=== PATIENT | male | born 1985 | race Caucasian/White ===

== ENCOUNTER 2020-04-03 22:20 | Emergency (ER) | payer OTHER, SELFPAY ==
[2020-04-03 23:12] VITALS: BP 129/94; PULSE 68; RESP 16; TEMP 36.8; O2SAT 98; BMI 32.5
[2020-04-03 23:25] LABS: Glucose, Whole Blood 304 mg/dL (60-115)
--- NOTE | 2020-04-03 23:30 | PC.NURSE ---
pt admits to using cocaine today.
[2020-04-03 23:47] LABS: Appearance Urine CLEAR; Color Urine STRAW; Glucose Urine UA >=1000 MG/DL (NEG); Leukocyte Esterase Urine NEG (NEG); Nitrite Urine NEG (NEG); Urine Blood NEG (NEG); Urine Ketones NEG (NEG); Urine Protein TRACE MG/DL (NEG-TRACE)
[2020-04-03 23:54] VITALS: BP 120/83; PULSE 67; RESP 18; TEMP 36.7; O2SAT 98
[2020-04-03 23:54] LABS: RBC Urine 0 /HPF (0); Squamous Epithelial Cell Urine 1+ /LPF; WBC Urine 0-2 /HPF (0-4)
--- NOTE | 2020-04-04 00:01 | ED.GENADULT ---
HPI - General Adult General Chief complaint: General Medical Stated complaint: headache, hi bs Time Seen by Provider: 04/04/20 00:01 Source: patient Mode of arrival: ambulatory Limitations: no limitations History of Present Illness HPI narrative: rectal pain for weeks and headache, patient has not seen his doctor. patient is not taking his diabetic medication Location: head Related Data Previous Rx's Medication Instructions Recorded metformin 1,000 mg PO DAILY #30 tab 04/04/20 Allergies Allergy/AdvReac Type Severity Reaction Status Date / Time bee pollen [BEE STINGS] Allergy Severe SWELLING Verified 04/03/20 23:11 Review of Systems Constitutional: Constitutional: Reports no additional constitutional complaints Eyes: Eyes: Reports no additional eye complaints ENT: Denies dizziness Cardiovascular: Cardiovascular: Reports no additional cardiovascular complaints Respiratory: Respiratory: Reports as per HPI Gastrointestinal: Gastrointestinal: Reports no additional gastrointestinal complaints Musculoskeletal: Musculoskeletal: Reports no additional musculoskeletal complaints Integumentary/Breasts: Skin/Breast: Denies rash Neurologic: Reports system reviewed and no additional complaints, except as documented, Denies dizziness and Denies Sensory deficit (Neuro) Psychiatric: Psychiatric: Denies anxiety [facility] Past Medical History Medical History Anal fissure Diabetes Social History Social History Advance Directives: No Advance Directives Information Provided: Yes Physical Exam Vital Signs: Vital Signs: Last Vital Signs Temp 98.0 F 04/03/20 23:54 Pulse 67 04/03/20 23:54 Resp 18 04/03/20 23:54 BP 120/83 04/03/20 23:54 Pulse Ox 98 04/03/20 23:54 Body Mass Index 32.5 Const: Other: male unkept in no acute distresss General: poor hygiene Nutritional Appearance: overweight Orientation/consciousness: oriented to person and patient oriented x3 Limitations: no limitations HENMT: Head: Yes normal to inspection Ears: external ears normal General nose exam: Normal external nose present Mouth: Normal oral and palatal mucosa present and oropharynx normal Throat: Yes posterior oropharynx normal Eyes: General: appearance normal, both eyes and all related structures Neck: Other: supple Neck: Yes normal visual inspection Chest: Chest palpation & inspection: normal inspection of the chest Resp: Auscultation: clear to auscultation bilaterally Cardio: Jugular venous distension: no JVD Rate: regular rate Rhythm: regular rhythm Heart sounds: S1 normal heart sound present and S2 normal heart sound present GI: Inspection: Yes normal to inspection Palpation (GI): Soft to palpation, nontender and No hepatosplenomegaly present Auscultation: normal bowel sounds : Other: rectal with 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, no pus, no erythema General: Yes no CVA tenderness Back/Spine/Pelvis: Back: no CVA tenderness Skin: General skin exam: no rashes or lesions noted Neuro: General: oriented to person and patient oriented x3 Cranial nerves: Yes CN's II-XII intact bilaterally Motor exam (neuro): 5/5 motor strength present throughout Sensory Exam: No Sensory deficit (Neuro) Extrem: General: Yes normal to inspection Psych: Appearance: grossly normal Course Course Course Narrative: patient with hyperglycemia, no on medication gave patient insulin R to bring sugar down and will start on metformin Medical Decision Making [facility] Narrative Medical decision making narrative: headache likely secondary to chronic hyperglycemia, rectal pain from post op fistula surgery, no evidence of infection. Will dc home on metformin with follow up Differential Diagnosis Differential Diagnosis: hyperglycemia and headache Lab Data Labs: Lab Results 04/03/20 04/03/20 Range/Units 23:19 23:32 POC Glucose 304 H (60-115) mg/dL Urine Color STRAW Urine Appearance CLEAR Urine pH 6.0 (5.0-8.0) Ur Specific [place] 1.010 (1.005-1.025) Urine Protein TRACE (NEG-TRACE) MG/DL Urine Glucose (UA) >=1000 H (NEG) MG/DL Urine Ketones NEG (NEG) MG/DL Urine Blood NEG (NEG) Urine Nitrite NEG (NEG) Ur Leukocyte Esterase NEG (NEG) Urine RBC 0 (0) /HPF Urine WBC 0-2 (0-4) /HPF Ur Squamous Epith Cells 1+ /LPF Urine Bacteria NONE /LPF Discharge Plan Discharge Clinical Impression: Diabetes Qualifiers: Diabetes mellitus type: type 2 Diabetes mellitus senior care insulin use: without senior care use Diabetes mellitus complication status: without complication Qualified Code(s): E11.9 - Type 2 diabetes mellitus without complications Patient Disposition: Home, Self-Care Instructions: Type 2 Diabetes in Adults: New Diagnosis (ED) Prescriptions: New metformin 1,000 mg tablet 1,000 mg PO DAILY Qty: 30 RF: 0 Referrals: Physician,None [Primary Care Provider] - 2 days (call this week)
[2020-04-04] MEDS: Insulin Regular, Human 100 UNIT/ML 3 ML VIAL 6 UNIT SUBCUT (00:32)
[2020-04-04] MEDS: metFORMIN HCl 1,000 MG TABLET 1000 MG PO (00:33)
--- NOTE | 2020-04-04 00:45 | PC.NURSE ---
MD PLAN IS TO MEDICATE WITH INSULIN AND METFORMIN. ASKED MD IF HE WANTS REPEAT POC BEFORE DISCHARGE, HE DOES NOT.
== END 2020-04-04 00:56 | disposition home or self-care (01) ==
PROVIDERS: Emergency Provider Emergency Medicine
DX: R51.9 Headache, unspecified (principal); E11.9 Type 2 diabetes mellitus without complications; Z79.899 Other long term (current) drug therapy
CPT/HCPCS: 81001; 82947; 99283

== ENCOUNTER 2020-04-15 18:22 | Emergency (ER) | payer OTHER, SELFPAY ==
[2020-04-15 18:44] VITALS: BP 142/83; PULSE 97; RESP 16; TEMP 37.1; O2SAT 96; BMI 34.0
--- NOTE | 2020-04-15 19:06 | ED.GENADULT ---
HPI - General Adult General Chief complaint: General Medical Stated complaint: MED REFILL Time Seen by Provider: 04/15/20 19:06 History of Present Illness HPI narrative: Patient is here for med refill for metformin 500 twice a day, he was here several days ago for this same refill but lost it and now he wants to come get started back on it, he has no complaints he is not dizzy weak he is not excessively thirsty he is not urinating frequently he is not vomiting and he feels fine in his normal state of health Related Data Previous Rx's Medication Instructions Recorded metformin 1,000 mg PO DAILY #30 tab 04/04/20 metformin 500 mg PO BID #60 tab 04/15/20 Allergies Allergy/AdvReac Type Severity Reaction Status Date / Time bee pollen [BEE STINGS] Allergy Severe SWELLING Verified 04/03/20 23:11 Review of Systems Review of Systems: No fever no chills no dizziness no weakness no chest pain no abdominal pain no nausea no vomiting no polyuria no polydipsia no dysuria Yes all other systems are reviewed and are negative [facility] Past Medical History Attestation statement: The following information was validated with the patient. [facility] Narrative: Medical history is diabetes, social history is alcohol abuse and he wants to go to rehab and has a place lined up but they want him to have a stock of current medications Medical History Anal fissure Diabetes Social History Social History Alcohol intake: current Smoking Status: Never smoker Use of substances other than those prescribed or required for medical reasons: No Advance Directives: No Advance Directives Information Provided: Yes Physical Exam Vital Signs: Vital Signs: Last Vital Signs Temp 98.8 F 04/15/20 18:44 Pulse 97 04/15/20 18:44 Resp 16 04/15/20 18:44 BP 142/83 H 04/15/20 18:44 Pulse Ox 96 04/15/20 18:44 Body Mass Index 34.0 General appearance is A&O x3 comfortable no acute distress well-developed well-nourished cheerful and cooperative Normocephalic atraumatic The neck is supple No respiratory distress Extremities full range of motion x4 Neuro no focal deficit Course Course Course Narrative: Records from prior visit a week ago are reviewed and patient's metformin is refilled Discharge Plan Discharge Clinical Impression: Encounter for medication refill Patient Disposition: Home, Self-Care Additional Instructions: We refilled her metformin Follow with primary physician Return any concerns Prescriptions: New metformin 500 mg tablet 500 mg PO BID Qty: 60 RF: 0 No Action metformin 1,000 mg tablet 1,000 mg PO DAILY Qty: 30 RF: 0
== END 2020-04-15 19:44 | disposition home or self-care (01) ==
PROVIDERS: Emergency Provider Emergency Medicine
DX: Z76.0 Encounter for issue of repeat prescription (principal); Z79.899 Other long term (current) drug therapy
CPT/HCPCS: 99283

== ENCOUNTER → 2020-05-18 14:30 | Outpatient (BNVA) | payer OTHER, SELFPAY | PROVIDERS: Visit Provider Surgery | DX: K60.3 Anal fistula (principal) | CPT/HCPCS: 99212 ==

== ENCOUNTER 2020-09-07 12:50 | Outpatient (REF) | payer OTHER, SELFPAY ==
[2020-09-07 13:37] LABS: COVID-19 Test Negative (Negative)
== END 2020-09-07 12:51 | disposition home or self-care (01) ==
LOC: HO.LAB 12:50
PROVIDERS: Visit Provider Internal Medicine
DX: Z20.822 Contact with and (suspected) exposure to COVID-19 (principal)
CPT/HCPCS: 36415; 87635; C9803

== ENCOUNTER 2020-09-28 09:05 | Emergency (ER) | payer OTHER, SELFPAY ==
--- NOTE | ~2020-09-28 | CT_ITS ---
EXAMINATION: CT ABDOMEN AND PELVIS WITH CONTRAST CLINICAL INFORMATION: Right upper quadrant, epigastric and right flank pain COMPARISON: CT abdomen and pelvis 04/24/2017 TECHNIQUE: Multidetector volumetric images were obtained from the superior aspect of the liver through the pubic symphysis following administration 85 mL of Omnipaque 350 intravenous contrast. Sagittal and coronal reformatted images were obtained on the technologist's workstation. Oral contrast: No This CT examination was performed using dose optimization techniques as appropriate, variously including the following: *Automated exposure control *Adjustment of mA and/or kV according to patient size (this includes techniques or standardized protocols for targeted exams where dose is matched to indication/reason for exam; i.e. extremities or head) *Use of iterative reconstruction technique DLP: 1299 mGy-cm FINDINGS: LUNG BASES: There is platelike atelectasis right middle lobe. The lung bases are clear. The heart size is normal. LIVER, GALLBLADDER, AND BILIARY TREE: The liver is normal in size, shape, and diffuse hypoattenuation. No focal hepatic lesion or biliary ductal dilatation is present. The gallbladder is unremarkable with no evidence of radiopaque gallstones, gallbladder wall thickening, or obvious pericholecystic inflammatory changes. PANCREAS: Unremarkable. SPLEEN: Unremarkable. ADRENAL GLANDS: Unremarkable. KIDNEYS AND URETERS: The kidneys are normal in size, shape, and attenuation. No hydronephrosis, hydroureter, or calculi seen. No perinephric stranding. There is a 2.2 cm cyst upper pole right kidney. BLADDER: The bladder is nondistended. However there is mild anterior bladder wall thickening measuring 7 mm and sagittal image 61/7. GASTROINTESTINAL TRACT: There is scattered stool and gas seen throughout the colon without significant distention. The small bowel loops are normal caliber. No free air or free fluid seen the appendix is normal caliber. ABDOMINAL WALL: There is a small umbilical hernia containing fat LYMPH NODES: Normal. VASCULAR: Unremarkable. PELVIC VISCERA: Unremarkable. OSSEOUS STRUCTURES: There is no lytic or sclerotic process seen. CT/CT abdomen pelvis w con IMPRESSION: Mild constipation. No acute intra-abdominal process seen. Diffuse hepatic steatosis without focal lesion. Small right renal cysts. Nonspecific mild anterior bladder wall thickening
--- NOTE | ~2020-09-28 | XR_ITS ---
EXAMINATION: XR CHEST CLINICAL INFORMATION: Pain COMPARISON: CT abdomen and pelvis 09/28/2020 TECHNIQUE: 2 views of the chest were obtained. FINDINGS: There is no pneumothorax, pleural reaction, airspace consolidation, or effusion. Fine linear disc atelectasis is again noted left lateral base similar to the CT. The heart is normal in size. The hilar and mediastinal contours and bony structures are unremarkable. XR/XR chest 2V IMPRESSION: Short disc atelectasis left lateral base. Lungs otherwise clear.
[2020-09-28 09:41] VITALS: BP 162/92; PULSE 71; RESP 18; TEMP 36.7; O2SAT 99; BMI 34.3
--- NOTE | 2020-09-28 11:00 | ED_ITS ---
HPI - Abdominal Pain General Chief Complaint: Abdominal Pain <Jai Hendrix MD - Last Filed: 09/28/20 14:22> Stated Complaint: ABD PAIN <Jai Hendrix MD - Last Filed: 09/28/20 14:22> Time Seen by Provider: 09/28/20 11:00 <Jai Hendrix MD - Last Filed: 09/28/20 14:22> History of Present Illness HPI narrative: Patient complains of right flank pain, right upper abdominal pain, epigastric pain, no nausea no vomiting no diarrhea, he is eating and drinking normally no fever no chills no dysuria He is a heavy daily drinker Pain is described as severe, it is a stabbing pain and it has been going on since yesterday for 2 days, it began gradually <LUCY Dickinson - Last Filed: 10/02/20 09:44> Related Data Home Medications: Home Medications Medication Instructions Recorded Confirmed hydroxyzine HCl 25 mg tablet 25 mg PO BID PRN 05/18/20 trazodone 100 mg tablet 100 mg PO BID 05/18/20 Previous Rx's Medication Instructions Recorded metformin 1,000 mg PO DAILY #30 tab 04/04/20 metformin 500 mg PO BID #60 tab 04/15/20 tramadol 50 mg tablet 50 mg PO TID PRN #30 tab 05/18/20 oxycodone 5 mg PO Q6H PRN #10 tab 09/28/20 <Jai Hendrix MD - Last Filed: 09/28/20 14:22> Allergies/Adverse Reactions: Allergies Allergy/AdvReac Type Severity Reaction Status Date / Time bee pollen [BEE STINGS] Allergy Severe SWELLING Verified 04/03/20 23:11 <Jai Hendrix MD - Last Filed: 09/28/20 14:22> Review of Systems Review of Systems Positive for right upper quadrant and epigastric pain, negatives are no fever no chills no dizziness no weakness no fainting no headache no chest pain no shortness of breath no nausea vomiting or diarrhea no anorexia no dysuria no burning with urination no frequency no back pain, no skin rash no numbness or weakness or confusion <LUCY Dickinson Last Filed: 10/02/20 09:44> Yes all other systems are reviewed and are negative <LUCY Dickinson - Last Filed: 10/02/20 09:44> Physical Exam Vital Signs: Vital Signs: Last Vital Signs Temp 98.8 F 09/28/20 12:03 Pulse 82 09/28/20 12:03 Resp 16 09/28/20 13:13 BP 122/72 09/28/20 12:03 Pulse Ox 100 09/28/20 12:03 Body Mass Index 34.3 <Jai Hendrix MD - Last Filed: 09/28/20 14:22> Vital Signs: Last Vital Signs Temp 98.8 F 09/28/20 12:03 Pulse 82 09/28/20 12:03 Resp 16 09/28/20 13:13 BP 122/72 09/28/20 12:03 Pulse Ox 100 09/28/20 12:03 Body Mass Index 34.3 <LUCY Dickinson - Last Filed: 10/02/20 09:44> General appearance is no acute distress, cooperative, uncomfortable appearing The head is normocephalic atraumatic Eyes anicteric no pallor The pharynx mucous membranes are moist, otherwise normal The neck is supple The chest is clear to auscultation bilateral full symmetrically to breath sounds The heart is no murmur The abdomen has right upper quadrant and epigastric tenderness, worse in the epigastric area, no rebound no guarding Extremities full range of motion x4, there is no pedal edema Neuro there is no focal motor or sensory deficit, no facial asymmetry, gait and balance are normal, verbal interaction both speech and understanding are normal <LUCY Dickinson - Last Filed: 10/02/20 09:44> Course Course Course Narrative: I have discussed the case and management with the NAVARRO <Jai Hendrix MD - Last Filed: 09/28/20 14:22> Ultrasound showed diffuse hepatic steatosis, there was no evidence of gallbladder disease WBC count was 7.8, renal function was normal Bilirubin was 1.1, mildly elevated, AST was 113 and ALT was 106, albumin and lipase were normal Patient's pain likely from alcoholic liver disease, he is advised to try to stop drinking, after analgesics his pain was very improved he is tolerating p.o. and he is discharged with analgesics for home use <LUCY Dickinson Last Filed: 10/02/20 09:44> MDM - Abdominal Pain Lab Data Attestation: I reviewed the patient's lab results. <LUCY Dickinson - Last Filed: 10/02/20 09:44> Result diagrams: : 09/28/20 10:57 09/28/20 10:57 <Jai Hendrix MD - Last Filed: 09/28/20 14:22> Labs: Lab Results 09/28/20 09/28/20 09/28/20 Range/Units 10:57 10:57 10:57 WBC 7.8 (4.8-10.8) X10*3/uL RBC 4.44 L (4.60-5.80) X10*6/uL Hgb 15.1 (14.0-18.0) g/dl Hct 43.9 (42-52) % MCV 98.9 H (80-98) fL MCH 34.0 H (27.0-33.0) pg MCHC 34.4 (31.0-36.0) g/dl RDW 13.0 (11.0-16.0) % Plt Count 193 (160-400) X10*3/uL MPV 10.2 (9.4-12.4) fL Immature Gran % (Auto) 0.1 (0.0-0.4) % Neut % (Auto) 52.0 (45-73) % Lymph % (Auto) 20.8 (20-40) % [place] % (Auto) 8.6 (2-11) % Eos % (Auto) 17.6 H (0-4) % Baso % (Auto) 0.9 (0-2) % Lymph # (Auto) 1.6 (1.2-4.9) X10*3/uL [place] # (Auto) 0.7 (0.1-1.2) X10*3/uL Eos # (Auto) 1.4 H (0.0-0.4) X10*3/uL Baso # (Auto) 0.1 (0.0-0.2) X10*3/uL Abs Immat Gran (auto) 0.01 (0.00-0.03) X10*3/uL Absolute Neuts (auto) 4.1 (2.0-8.3) X10*3/uL Absolute Nucleated RBC 0.000 (0.0-0.012) X10*3/uL Nucleated RBC % (auto) 0.0 (0.0-0.2) /100WBC Hold Blue Top SEE NOTE Sodium 139 (135-145) mmol/L Potassium 4.4 (3.3-5.1) mmol/L Chloride 102 (96-108) mmol/L Carbon Dioxide 30 H (22-29) mmol/L Anion Gap 11 L (12-20) BUN 6 L (9-16) mg/dL Creatinine 0.81 (0.5-1.4) mg/dL Estim Creat Clear Calc 130.5 Estimated GFR > 60 Random Glucose 191 H (60-115) mg/dL Calcium 9.7 (8.4-10.2) mg/dL Total Bilirubin 1.1 H (0.0-1.0) mg/dL Direct Bilirubin 0.5 (0.0-0.5) mg/dL AST 113 H (5-37) U/L ALT 106 H (0-40) U/L Alkaline Phosphatase 84 (39-117) U/L Total Protein 7.7 (6.5-8.0) g/dL Albumin 4.3 (3.5-5.0) g/dL Lipase 16 (8-78) U/L Urine Color Urine Appearance Urine pH (5.0-8.0) Ur Specific [place] (1.005-1.025) Urine Protein (NEG-TRACE) MG/DL Urine Glucose (UA) (NEG) MG/DL Urine Ketones (NEG) MG/DL Urine Blood (NEG) Urine Nitrite (NEG) Ur Leukocyte Esterase (NEG) 09/28/20 Range/Units 13:01 WBC (4.8-10.8) X10*3/uL RBC (4.60-5.80) X10*6/uL Hgb (14.0-18.0) g/dl Hct (42-52) % MCV (80-98) fL MCH (27.0-33.0) pg MCHC (31.0-36.0) g/dl RDW (11.0-16.0) % Plt Count (160-400) X10*3/uL MPV (9.4-12.4) fL Immature Gran % (Auto) (0.0-0.4) % Neut % (Auto) (45-73) % Lymph % (Auto) (20-40) % [place] % (Auto) (2-11) % Eos % (Auto) (0-4) % Baso % (Auto) (0-2) % Lymph # (Auto) (1.2-4.9) X10*3/uL [place] # (Auto) (0.1-1.2) X10*3/uL Eos # (Auto) (0.0-0.4) X10*3/uL Baso # (Auto) (0.0-0.2) X10*3/uL Abs Immat Gran (auto) (0.00-0.03) X10*3/uL Absolute Neuts (auto) (2.0-8.3) X10*3/uL Absolute Nucleated RBC (0.0-0.012) X10*3/uL Nucleated RBC % (auto) (0.0-0.2) /100WBC Hold Blue Top Sodium (135-145) mmol/L Potassium (3.3-5.1) mmol/L Chloride (96-108) mmol/L Carbon Dioxide (22-29) mmol/L Anion Gap (12-20) BUN (9-16) mg/dL Creatinine (0.5-1.4) mg/dL Estim Creat Clear Calc Estimated GFR Random Glucose (60-115) mg/dL Calcium (8.4-10.2) mg/dL Total Bilirubin (0.0-1.0) mg/dL Direct Bilirubin (0.0-0.5) mg/dL AST (5-37) U/L ALT (0-40) U/L Alkaline Phosphatase (39-117) U/L Total Protein (6.5-8.0) g/dL Albumin (3.5-5.0) g/dL Lipase (8-78) U/L Urine Color YELLOW Urine Appearance CLEAR Urine pH 6.0 (5.0-8.0) Ur Specific [place] <= 1.005 (1.005-1.025) Urine Protein NEG (NEG-TRACE) MG/DL Urine Glucose (UA) 100 H (NEG) MG/DL Urine Ketones NEG (NEG) MG/DL Urine Blood NEG (NEG) Urine Nitrite NEG (NEG) Ur Leukocyte Esterase NEG (NEG) <Jai Hendrix MD - Last Filed: 09/28/20 14:22> Lab Results 09/28/20 09/28/20 09/28/20 Range/Units 10:57 10:57 10:57 WBC 7.8 (4.8-10.8) X10*3/uL RBC 4.44 L (4.60-5.80) X10*6/uL Hgb 15.1 (14.0-18.0) g/dl Hct 43.9 (42-52) % MCV 98.9 H (80-98) fL MCH 34.0 H (27.0-33.0) pg MCHC 34.4 (31.0-36.0) g/dl RDW 13.0 (11.0-16.0) % Plt Count 193 (160-400) X10*3/uL MPV 10.2 (9.4-12.4) fL Immature Gran % (Auto) 0.1 (0.0-0.4) % Neut % (Auto) 52.0 (45-73) % Lymph % (Auto) 20.8 (20-40) % [place] % (Auto) 8.6 (2-11) % Eos % (Auto) 17.6 H (0-4) % Baso % (Auto) 0.9 (0-2) % Lymph # (Auto) 1.6 (1.2-4.9) X10*3/uL [place] # (Auto) 0.7 (0.1-1.2) X10*3/uL Eos # (Auto) 1.4 H (0.0-0.4) X10*3/uL Baso # (Auto) 0.1 (0.0-0.2) X10*3/uL Abs Immat Gran (auto) 0.01 (0.00-0.03) X10*3/uL Absolute Neuts (auto) 4.1 (2.0-8.3) X10*3/uL Absolute Nucleated RBC 0.000 (0.0-0.012) X10*3/uL Nucleated RBC % (auto) 0.0 (0.0-0.2) /100WBC Hold Blue Top SEE NOTE Sodium 139 (135-145) mmol/L Potassium 4.4 (3.3-5.1) mmol/L Chloride 102 (96-108) mmol/L Carbon Dioxide 30 H (22-29) mmol/L Anion Gap 11 L (12-20) BUN 6 L (9-16) mg/dL Creatinine 0.81 (0.5-1.4) mg/dL Estim Creat Clear Calc 130.5 Estimated GFR > 60 Random Glucose 191 H (60-115) mg/dL Calcium 9.7 (8.4-10.2) mg/dL Total Bilirubin 1.1 H (0.0-1.0) mg/dL Direct Bilirubin 0.5 (0.0-0.5) mg/dL AST 113 H (5-37) U/L ALT 106 H (0-40) U/L Alkaline Phosphatase 84 (39-117) U/L Total Protein 7.7 (6.5-8.0) g/dL Albumin 4.3 (3.5-5.0) g/dL Lipase 16 (8-78) U/L Urine Color Urine Appearance Urine pH (5.0-8.0) Ur Specific [place] (1.005-1.025) Urine Protein (NEG-TRACE) MG/DL Urine Glucose (UA) (NEG) MG/DL Urine Ketones (NEG) MG/DL Urine Blood (NEG) Urine Nitrite (NEG) Ur Leukocyte Esterase (NEG) /10/14 Range/Units 13:01 WBC (4.8-10.8) X10*3/uL RBC (4.60-5.80) X10*6/uL Hgb (14.0-18.0) g/dl Hct (42-52) % MCV (80-98) fL MCH (27.0-33.0) pg MCHC (31.0-36.0) g/dl RDW (11.0-16.0) % Plt Count (160-400) X10*3/uL MPV (9.4-12.4) fL Immature Gran % (Auto) (0.0-0.4) % Neut % (Auto) (45-73) % Lymph % (Auto) (20-40) % [place] % (Auto) (2-11) % Eos % (Auto) (0-4) % Baso % (Auto) (0-2) % Lymph # (Auto) (1.2-4.9) X10*3/uL [place] # (Auto) (0.1-1.2) X10*3/uL Eos # (Auto) (0.0-0.4) X10*3/uL Baso # (Auto) (0.0-0.2) X10*3/uL Abs Immat Gran (auto) (0.00-0.03) X10*3/uL Absolute Neuts (auto) (2.0-8.3) X10*3/uL Absolute Nucleated RBC (0.0-0.012) X10*3/uL Nucleated RBC % (auto) (0.0-0.2) /100WBC Hold Blue Top Sodium (135-145) mmol/L Potassium (3.3-5.1) mmol/L Chloride (96-108) mmol/L Carbon Dioxide (22-29) mmol/L Anion Gap (12-20) BUN (9-16) mg/dL Creatinine (0.5-1.4) mg/dL Estim Creat Clear Calc Estimated GFR Random Glucose (60-115) mg/dL Calcium (8.4-10.2) mg/dL Total Bilirubin (0.0-1.0) mg/dL Direct Bilirubin (0.0-0.5) mg/dL AST (5-37) U/L ALT (0-40) U/L Alkaline Phosphatase (39-117) U/L Total Protein (6.5-8.0) g/dL Albumin (3.5-5.0) g/dL Lipase (8-78) U/L Urine Color YELLOW Urine Appearance CLEAR Urine pH 6.0 (5.0-8.0) Ur Specific [place] <= 1.005 (1.005-1.025) Urine Protein NEG (NEG-TRACE) MG/DL Urine Glucose (UA) 100 H (NEG) MG/DL Urine Ketones NEG (NEG) MG/DL Urine Blood NEG (NEG) Urine Nitrite NEG (NEG) Ur Leukocyte Esterase NEG (NEG) <LUCY Dickinson - Last Filed: 10/02/20 09:44> Discharge Plan Discharge Clinical Impression: Abdominal pain, Alcoholic fatty liver, Alcohol dependence <Jai Hendrix MD - Last Filed: 09/28/20 14:22> Patient Disposition: Home, Self-Care <Jai Hendrix MD - Last Filed: 09/28/20 14:22> Additional Instructions: Our tests did not show any surgical emergency today They did show irritation to the liver from drinking blood pressure and sugar were elevated today Best plan is try to quit drinking, and follow with primary doctor for treatment elevated glucose Return to ER any time for vomiting fever uncontrolled pain, any worse condition or any concerns <Jai Hendrix MD - Last Filed: 09/28/20 14:22> Prescriptions: New oxycodone 5 mg tablet 5 mg PO Q6H PRN (Reason: pain) Qty: 10 RF: 0 No Action metformin 1,000 mg tablet 1,000 mg PO DAILY Qty: 30 RF: 0 metformin 500 mg tablet 500 mg PO BID Qty: 60 RF: 0 hydroxyzine HCl 25 mg tablet 25 mg PO BID PRNRF: 0 trazodone 100 mg tablet 100 mg PO BID RF: 0 tramadol 50 mg tablet 50 mg PO TID PRN (Reason: pain) Qty: 30 RF: 0 <Jai Hendrix MD - Last Filed: 09/28/20 14:22> Interventions: ED Discharge Assessment Last Done: 09/28/20 14:50 <Jai Hendrix MD - Last Filed: 09/28/20 14:22> Discharge Date/Time: 09/28/20 14:54 <Jai Hendrix MD - Last Filed: 09/28/20 14:22> [facility] Past Medical History Source: nursing notes reviewed <LUCY Dickinson - Last Filed: 10/02/20 09:44> Medical History: Medical History Anal fissure Anal fistula Diabetes History of alcohol abuse <Jai Hendrix MD - Last Filed: 09/28/20 14:22> Social History Social History: Social History Alcohol intake: former Smoking Status: Never smoker Use of substances other than those prescribed or required for medical reasons: No Advance Directives: No Advance Directives Information Provided: No <Jai Hendrix MD - Last Filed: 09/28/20 14:22>
[2020-09-28 11:07] LABS: MANUAL DIFF FLAG NO
[2020-09-28 11:11] LABS: Basophils Absolute Auto 0.1 X10*3/uL (0.0-0.2); Basophils Percent Auto 0.9 % (0-2); Eosinophils Absolute Auto 1.4 X10*3/uL (0.0-0.4); Eosinophils Percent Auto 17.6 % (0-4); Hematocrit 43.9 % (42-52); Hemoglobin 15.1 g/dl (14.0-18.0); Imm Gran Abs Auto 0.01 X10*3/uL (0.00-0.03); Imm Gran Pct Auto 0.1 % (0.0-0.4); Lymphocytes Absolute Auto 1.6 X10*3/uL (1.2-4.9); Lymphocytes Percent Auto 20.8 % (20-40); Mean Corpuscular HGB Conc 34.4 g/dl (31.0-36.0); Mean Corpuscular Volume 98.9 fL (80-98); Mean Platelet Volume 10.2 fL (9.4-12.4); Monocytes Absolute Auto 0.7 X10*3/uL (0.1-1.2); Monocytes Percent Auto 8.6 % (2-11); Neutrophils Absolute Auto 4.1 X10*3/uL (2.0-8.3); Platelet Count 193 X10*3/uL (160-400); Red Blood Count 4.44 X10*6/uL (4.60-5.80); White Blood Count 7.8 X10*3/uL (4.8-10.8)
[2020-09-28 11:35] LABS: Alanine Aminotransferase 106 U/L (0-40); Albumin Level 4.3 g/dL (3.5-5.0); Alkaline Phosphatase 84 U/L (39-117); Anion Gap 11 (12-20); Aspartate Amino Transferase 113 U/L (5-37); Bilirubin Total 1.1 mg/dL (0.0-1.0); Blood Urea Nitrogen 6 mg/dL (9-16); Calcium 9.7 mg/dL (8.4-10.2); Carbon Dioxide 30 mmol/L (22-29); Chloride 102 mmol/L (96-108); Creatinine Clr Calc Pharmacy 130.5; Estimated Glomerular Filt Rate > 60; Glucose Random 191 mg/dL (60-115); Lipase 16 U/L (8-78); Potassium 4.4 mmol/L (3.3-5.1); Sodium 139 mmol/L (135-145); Total Protein 7.7 g/dL (6.5-8.0)
[2020-09-28 11:37] LABS: Bilirubin Direct 0.5 mg/dL (0.0-0.5)
[2020-09-28 11:40] VITALS: RESP 18
[2020-09-28] MEDS: Morphine Sulfate 4 MG/ML CARTRIDGE IVPUSH ×2 (11:40→13:13)
[2020-09-28] MEDS: 0.9 % Sodium Chloride 1,000 ML 999 ML IVCONT (11:40)
[2020-09-28] MEDS: iohexoL 350 MG/ML 100 ML INFUS..BTL IV (11:56)
[2020-09-28 12:03] VITALS: BP 122/72; PULSE 82; RESP 18; TEMP 37.1; O2SAT 100
[2020-09-28 13:13] VITALS: RESP 16
[2020-09-28 13:18] LABS: Glucose Urine UA 100 MG/DL (NEG); Leukocyte Esterase Urine NEG (NEG); Nitrite Urine NEG (NEG); Specific Gravity - Urine <= 1.005 (1.005-1.025); Urine Blood NEG (NEG); Urine Ketones NEG (NEG); Urine Protein NEG (NEG-TRACE)
[2020-09-28 13:20] LABS: Appearance Urine CLEAR; Color Urine YELLOW
== END 2020-09-28 14:54 | disposition home or self-care (01) ==
PROVIDERS: Physician Assistant Medical; Emergency Provider Emergency Medicine
DX: R10.13 Epigastric pain (principal); K70.0 Alcoholic fatty liver; F10.20 Alcohol dependence, uncomplicated; E11.9 Type 2 diabetes mellitus without complications; Z79.84 Long term (current) use of oral hypoglycemic drugs
CPT/HCPCS: 36415; 71046; 74177; 80053; 80076; 81003; 82248; 83690; 85025; 96374; 96376; 99284; 99285; J2270; Q9967

== ENCOUNTER 2020-11-21 23:43 | Emergency (ER) | payer OTHER, SELFPAY | END 2020-11-22 01:25 | disposition left against medical advice (07) | PROVIDERS: Emergency Provider Emergency Medicine | DX: R40.0 Somnolence (principal) ==

== ENCOUNTER 2021-02-13 18:16 | Emergency (ER) | payer OTHER, SELFPAY ==
[2021-02-13 18:23] VITALS: BP 150/100; PULSE 86; O2SAT 98
== END 2021-02-13 20:56 | disposition left against medical advice (07) ==
PROVIDERS: Emergency Provider Emergency Medicine
DX: R42 Dizziness and giddiness (principal)

== ENCOUNTER 2021-03-19 23:01 | Emergency (ER) | payer OTHER, SELFPAY ==
[2021-03-19 23:10] VITALS: BP 138/70; BP 148/102; PULSE 102; PULSE 92; RESP 16; TEMP 37; O2SAT 97; O2SAT 98; BMI 31.8
--- NOTE | 2021-03-19 23:56 | PC.NURSE ---
provider at bedside, pt is awake talking, alert and oriented x3 no s/s/ of resp distress at this time. pt has been changed over into hospital gown, security present, urine obtained, security present for acid changer and belongings locked in decon.
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
[2021-03-20] VITALS: BP 127/86; PULSE 95; RESP 16; O2SAT 96
[2021-03-20] MEDS: Bacitracin Oint 14 GM TUBE 1 APPL TOPICAL (00:19)
[2021-03-20 00:29] LABS: Amphetamine Screen Urine Not Detected (Not Detect); Barbiturates, Urine Not Detected (Not Detect); Benzodiazepines Screen Urine Not Detected (Not Detect); Cannabinoid Screen Urine Not Detected (Not Detect); Cocaine Screen Urine POSITIVE (Not Detect); Fentanyl, urine POSITIVE (Not Detect); Opiate Screen Urine POSITIVE (Not Detect); Phencyclidine Screen Urine Not Detected (Not Detect)
[2021-03-20 00:34] VITALS: BP 127/81; PULSE 93; RESP 16; O2SAT 94
[2021-03-20 02:00] VITALS: BP 103/72; PULSE 89; RESP 16; O2SAT 95
[2021-03-20 02:52] VITALS: BP 128/81; PULSE 89; RESP 16; O2SAT 97
[2021-03-20] MEDS: Naloxone HCl Nasal TAKE HOME 4 MG SPRAY NOSTRILALT (02:54)
== END 2021-03-20 02:55 | disposition home or self-care (01) ==
PROVIDERS: Emergency Provider Emergency Medicine Emergency Medical Services
DX: T40.1X1A Poisoning by heroin, accidental (unintentional), initial encounter (principal); Y92.9 Unspecified place or not applicable; F14.10 Cocaine abuse, uncomplicated; Z71.51 Drug abuse counseling and surveillance of drug abuser; Z79.899 Other long term (current) drug therapy
CPT/HCPCS: 80307; 99284

== ENCOUNTER 2021-06-14 14:32 | Outpatient (REF) | payer OTHER, SELFPAY ==
[2021-06-14 15:03] LABS: COVID-19 Test Negative (Negative)
== END 2021-06-14 14:33 | disposition home or self-care (01) ==
LOC: HO.LAB 14:32
PROVIDERS: Visit Provider Internal Medicine
DX: Z20.822 Contact with and (suspected) exposure to COVID-19 (principal)
CPT/HCPCS: 87635; C9803

== ENCOUNTER → 2021-06-19 10:43 | Outpatient (BNVA) | payer OTHER, SELFPAY | PROVIDERS: Visit Provider Surgery ==

== ENCOUNTER 2021-07-01 22:00 | Emergency (ER) | payer OTHER, SELFPAY ==
--- NOTE | ~2021-07-01 | US_ITS ---
EXAMINATION: US VENOUS WITH DOPPLER UPPER EXTREMITY, LEFT CLINICAL INFORMATION: Pain/lump in the left antecubital fossa COMPARISON: None TECHNIQUE: Ultrasound of the upper extremity is performed using compression sonography and color and pulse Doppler flow with assessment of augmentation of flow. There is also imaging and Doppler assessment of the jugular and subclavian veins. Spectral analysis with color-flow imaging is performed. FINDINGS: Respiratory variation, normal compression, and augmented flow are noted throughout the upper extremity including the axillary, brachial, cubital, and radial and ulnar veins. There is normal flow in the internal jugular and subclavian veins. There is no visible deep or superficial thrombophlebitis. There is a 2.5 x 1.4 x 1.9 cm mass seen adjacent to the brachial artery. No flow is seen within this. There is no limitation of flow or arterial or venous obstruction seen. If the patient's symptoms progress, a followup ultrasound in 5 -7 days might be of value to exclude proximal propagation from a nonvisualized distal arm vein. US/US venous duplex UE LT IMPRESSION: 1. No DVT demonstrated in the left upper extremity. 2. 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
[2021-07-01 22:06] VITALS: BP 121/80; BP 135/96; PULSE 87; PULSE 90; RESP 18; TEMP 36.6; O2SAT 94; O2SAT 97; BMI 34.0
[2021-07-01 22:41] LABS: Glucose, Whole Blood 291 mg/dL (60-115)
--- NOTE | 2021-07-01 22:52 | ED_ITS ---
HPI - General Adult General Chief complaint: ETOH/Substance Use Stated complaint: ETOH,CALM AND COOP PER EMS Time Seen by Provider: 07/01/21 22:27 Source: patient Mode of arrival: EMS Limitations: no limitations History of Present Illness HPI narrative: Patient's history of alcohol abuse diabetes overdose in 1020 had IV line placed in the left AC since then noticed swelling in the left AC also patient drinks alcohol not taking his medication for diabetes blood sugar was 360 when arrived repeat blood sugar was 291. Patient also has anal Barker been followed by surgeon Related Data Home Medications Medication Instructions Recorded Confirmed hydroxyzine HCl 25 mg tablet 25 mg PO BID PRN 05/18/20 06/19/21 trazodone 100 mg tablet 100 mg PO BID 05/18/20 06/19/21 Previous Rx's Medication Instructions Recorded metformin 1,000 mg tablet 1,000 mg PO DAILY #30 tab 04/04/20 metformin 500 mg tablet 500 mg PO BID #60 tab 04/15/20 tramadol 50 mg tablet 50 mg PO TID PRN #30 tab 05/18/20 oxycodone 5 mg tablet 5 mg PO Q6H PRN #10 tab 09/28/20 tramadol 50 mg tablet 50 mg PO Q6H PRN #30 tab 06/19/21 blood-glucose meter #1 ea 07/02/21 metformin 500 mg tablet 500 mg PO BID #60 tab 07/02/21 Allergies Allergy/AdvReac Type Severity Reaction Status Date / Time bee pollen [BEE STINGS] Allergy Severe SWELLING Verified 06/19/21 11:02 Review of Systems Verdana 4l Review of Systems: Yes all other systems are reviewed and Verdana 4d are negative [facility] Past Medical History Medical History Anal fissure Anal fistula Diabetes History of alcohol abuse Social History Social History Alcohol intake: former Advance Directives: No Advance Directives Information Provided: No Physical Exam Verdana 4l Vital Signs: Verdana 4d Verdana 4d Vital Signs: Verdana 4d Verdana 4Bd Last Vital Signs Verdana 4d Door Closer Mechanic New 4d Door Closer Mechanic New 4d Temp 98 F 07/01/21 22:06 Door Closer Mechanic New 4d Pulse 87 07/01/21 22:06 Door Closer Mechanic New 4d Resp 18 07/01/21 22:06 BP 135/96 H 07/01/21 22:06 Pulse Ox 97 07/01/21 22:06 BMI result Body Mass Index 34.0 Appearance: Alert. Oriented X3. No acute distress. Intoxicated ENT: Pharynx normal. Oral Mucosa moist Neck: Normal inspection. Neck supple. CVS: Normal heart rate and rhythm. Pulses normal. Respiratory: No respiratory distress. Equal air entry bilateral, no wheezing/rales/rhonchi Abdomen: Soft and nontender. Bowel sounds are present, no mass palpable, no CVA tenderness Rectal: Postop changes Skin: Skin warm and dry. Normal skin color. Normal skin turgor. Extremities: No lower extremity edema. No calf tenderness left arm swelling of the left AC Neuro: Oriented X 3. No motor deficit. No sensory deficit.No cerebellar signs , cranial nerves II-XII intact Medical Decision Making MDM Narrative Medical decision making narrative: Patient has multiple complaints ultrasound or left arm showed fibrosed/thrombosed old vessel with no blood flow date negative for DVT Lab Data Lab results reviewed: Yes I reviewed the patient's lab results. Result diagrams: 07/01/21 23:11 07/01/21 23:11 Labs: Lab Results 07/01/21 07/01/21 07/01/21 Range/Units 22:37 23:11 23:11 WBC 6.9 (4.8-10.8) X10*3/uL RBC 4.44 L (4.60-5.80) X10*6/uL Hgb 15.2 (14.0-18.0) g/dl Hct 44.3 (42.0-52.0) % MCV 99.8 H (80.0-98.0) fL MCH 34.2 H (27.0-33.0) pg MCHC 34.3 (31.0-36.0) g/dl RDW 11.0 (11.0-16.0) % Plt Count 214 (160-400) X10*3/uL MPV 10.0 (9.4-12.4) fL Immature Gran % (Auto) 0.3 (0.0-0.4) % Neut % (Auto) 42.4 L (45-73) % Lymph % (Auto) 30.4 (20-40) % [place] % (Auto) 6.1 (2-11) % Eos % (Auto) 19.9 H (0-4) % Baso % (Auto) 0.9 (0-2) % Lymph # (Auto) 2.1 (1.2-4.9) X10*3/uL [place] # (Auto) 0.4 (0.1-1.2) X10*3/uL Eos # (Auto) 1.4 H (0.0-0.4) X10*3/uL Baso # (Auto) 0.1 (0.0-0.2) X10*3/uL Abs Immat Gran (auto) 0.02 (0.00-0.03) X10*3/uL Absolute Neuts (auto) 2.9 (2.0-8.3) x10*3/uL Absolute Nucleated RBC 0.000 (0.0-0.012) X10*3/uL Nucleated RBC % (auto) 0.0 (0.0-0.2) /100WBC D-Dimer High Sensitivty < 150 NG/ML Sodium (135-145) mmol/L Potassium (3.3-5.1) mmol/L Chloride (96-108) mmol/L Carbon Dioxide (22-29) mmol/L Anion Gap (12-20) BUN (9-16) mg/dL Creatinine (0.5-1.4) mg/dL Estim Creat Clear Calc Estimated GFR POC Glucose 291 H (60-115) mg/dL Random Glucose (60-115) mg/dL Calcium (8.4-10.2) mg/dL Total Bilirubin (0.0-1.0) mg/dL AST (5-37) U/L ALT (0-40) U/L Alkaline Phosphatase (39-117) U/L Total Protein (6.5-8.0) g/dL Albumin (3.5-5.0) g/dL Ethyl Alcohol mg/dL 07/01/21 07/01/21 Range/Units 23:11 23:11 WBC (4.8-10.8) X10*3/uL RBC (4.60-5.80) X10*6/uL Hgb (14.0-18.0) g/dl Hct (42.0-52.0) % MCV (80.0-98.0) fL MCH (27.0-33.0) pg MCHC (31.0-36.0) g/dl RDW (11.0-16.0) % Plt Count (160-400) X10*3/uL MPV (9.4-12.4) fL Immature Gran % (Auto) (0.0-0.4) % Neut % (Auto) (45-73) % Lymph % (Auto) (20-40) % [place] % (Auto) (2-11) % Eos % (Auto) (0-4) % Baso % (Auto) (0-2) % Lymph # (Auto) (1.2-4.9) X10*3/uL [place] # (Auto) (0.1-1.2) X10*3/uL Eos # (Auto) (0.0-0.4) X10*3/uL Baso # (Auto) (0.0-0.2) X10*3/uL Abs Immat Gran (auto) (0.00-0.03) X10*3/uL Absolute Neuts (auto) (2.0-8.3) x10*3/uL Absolute Nucleated RBC (0.0-0.012) X10*3/uL Nucleated RBC % (auto) (0.0-0.2) /100WBC D-Dimer High Sensitivty NG/ML Sodium 143 (135-145) mmol/L Potassium 3.5 D (3.3-5.1) mmol/L Chloride 103 (96-108) mmol/L Carbon Dioxide 29 (22-29) mmol/L Anion Gap 15 (12-20) BUN 7 L (9-16) mg/dL Creatinine 0.80 (0.5-1.4) mg/dL Estim Creat Clear Calc 130.2 Estimated GFR > 60 POC Glucose (60-115) mg/dL Random Glucose 266 H D (60-115) mg/dL Calcium 9.1 D (8.4-10.2) mg/dL Total Bilirubin 0.5 (0.0-1.0) mg/dL AST 62 H (5-37) U/L ALT 52 H (0-40) U/L Alkaline Phosphatase 90 (39-117) U/L Total Protein 7.9 (6.5-8.0) g/dL Albumin 4.0 (3.5-5.0) g/dL Ethyl Alcohol 311 H* mg/dL Discharge Plan Discharge Clinical Impression: Deep vein thrombophlebitis of arm, Alcohol abuse Patient Disposition: Home, Self-Care Instructions: Superficial Thrombophlebitis (ED), Abuse of Alcohol (DC) Additional Instructions: Take baby aspirin daily Check blood sugar daily And take your medications on time Prescriptions: New metformin 500 mg tablet 500 mg PO BID Qty: 60 0RF (DME) blood-glucose meter Kit See Rx Instructions .Route Qty: 1 0RF Rx Instructions: As directed No Action metformin 1,000 mg tablet 1,000 mg PO DAILY Qty: 30 0RF metformin 500 mg tablet 500 mg PO BID Qty: 60 0RF oxycodone 5 mg tablet 5 mg PO Q6H PRN (Reason: pain) Qty: 10 0RF hydroxyzine HCl 25 mg tablet 25 mg PO BID PRN0RF trazodone 100 mg tablet 100 mg PO BID 0RF tramadol 50 mg tablet 50 mg PO TID PRN (Reason: pain) Qty: 30 0RF Rx Instructions: 1-2 tabs up to three times a day only as needed tramadol 50 mg tablet 50 mg PO Q6H PRN (Reason: pain) Qty: 30 0RF
[2021-07-01 23:17] LABS: MANUAL DIFF FLAG NO
[2021-07-01 23:18] LABS: Basophils Absolute Auto 0.1 X10*3/uL (0.0-0.2); Basophils Percent Auto 0.9 % (0-2); Eosinophils Absolute Auto 1.4 X10*3/uL (0.0-0.4); Eosinophils Percent Auto 19.9 % (0-4); Hematocrit 44.3 % (42.0-52.0); Hemoglobin 15.2 g/dl (14.0-18.0); Imm Gran Abs Auto 0.02 X10*3/uL (0.00-0.03); Imm Gran Pct Auto 0.3 % (0.0-0.4); Lymphocytes Absolute Auto 2.1 X10*3/uL (1.2-4.9); Lymphocytes Percent Auto 30.4 % (20-40); Mean Corpuscular HGB Conc 34.3 g/dl (31.0-36.0); Mean Corpuscular Hemoglobin 34.2 pg (27.0-33.0); Mean Corpuscular Volume 99.8 fL (80.0-98.0); Monocytes Absolute Auto 0.4 X10*3/uL (0.1-1.2); Monocytes Percent Auto 6.1 % (2-11); Neutrophils Absolute Auto 2.9 x10*3/uL (2.0-8.3); Neutrophils Percent Auto 42.4 % (45-73); Platelet Count 214 X10*3/uL (160-400); Red Blood Count 4.44 X10*6/uL (4.60-5.80); White Blood Count 6.9 X10*3/uL (4.8-10.8)
[2021-07-01 23:26] LABS: D Dimer High Sensitivity < 150 NG/ML
[2021-07-01 23:31] LABS: Ethanol 311 mg/dL
[2021-07-01 23:33] LABS: Alanine Aminotransferase 52 U/L (0-40); Alkaline Phosphatase 90 U/L (39-117); Anion Gap 15 (12-20); Aspartate Amino Transferase 62 U/L (5-37); Bilirubin Total 0.5 mg/dL (0.0-1.0); Blood Urea Nitrogen 7 mg/dL (9-16); Calcium 9.1 mg/dL (8.4-10.2); Carbon Dioxide 29 mmol/L (22-29); Chloride 103 mmol/L (96-108); Creatinine Clr Calc Pharmacy 130.2; Estimated Glomerular Filt Rate > 60; Glucose Random 266 mg/dL (60-115); Potassium 3.5 mmol/L (3.3-5.1); Sodium 143 mmol/L (135-145); Total Protein 7.9 g/dL (6.5-8.0)
--- NOTE | 2021-07-01 23:43 | PC.NURSE ---
RN spoke with Dianne who called from the pt's care home to obtain information regarding the pt's potential discharge date/time. RN informed Dianne that the patient had additional concerns that would need to be addressed prior to discharge and that depending upon his lab work would determine how soon he could be discharged unless a sober ride was provided. Dianne confirmed that the care home/home could provide the patient with a sober ride and asked that staff call her at [phone] when the pt is ready for discharge to coordinate a ride. Pt currently resting comfortably in stretcher with tv on, lights dimmed for comfort and no distress noted. Pt aware that he is awaiting lab results and evaluation of left arm lump. Call rodríguez within reach.
[2021-07-02] MEDS: metFORMIN HCl 1,000 MG TABLET 1000 MG PO (00:36)
--- NOTE | 2021-07-02 00:50 | PC.NURSE ---
This RN and charge machine operator to bedside; pt visibly upset while getting his belongings together and coat on. Pt expressing feelings of dismissal and not receiving help. Staff attempted to apologize for the patient's dissatisfaction. Pt also expressed concern and frustration surrounding his need to walk far to the [facility] which he [facility] as staff won't provide him with an ambulance. This RN reassured the pt that she spoke with Dianne who confirmed she and/or another staff member would provide the patient with a ride home from the hospital. Pt agreeable and continued to express his thoughts on his MD interaction and lack of information reviewed/provided. This RN reviewed the patient's blood work, US results and provided clarification between triage and registration (pt reported no one even came from triage when he was referring to registration) at which point the pt stated that's it I'm not going to argue with you .
--- NOTE | 2021-07-02 01:29 | PC.NURSE ---
RN called to the waiting room as patient's staff member/cresencioer santa requested the patient's discharge paperwork as the pt reported never being given any. THis RN reviewed the information with the staff member
== END 2021-07-02 01:29 | disposition home or self-care (01) ==
PROVIDERS: Emergency Provider Internal Medicine
DX: I82.622 Acute embolism and thrombosis of deep veins of left upper extremity (principal); F10.10 Alcohol abuse, uncomplicated; Y90.8 Blood alcohol level of 240 mg/100 ml or more; E11.65 Type 2 diabetes mellitus with hyperglycemia; Z91.14 Patient's other noncompliance with medication regimen
CPT/HCPCS: 36415; 80053; 82077; 82947; 85025; 85379; 93971; 99284

== ENCOUNTER 2021-07-25 23:52 | Emergency (ER) | payer OTHER, SELFPAY ==
[2021-07-26] VITALS: BP 160/102; BP 162/97; PULSE 104; PULSE 114; RESP 16; TEMP 36.7; O2SAT 96; O2SAT 98; BMI 32.4
--- NOTE | 2021-07-26 00:02 | ED.ALCOHOL ---
HPI - Alcohol General Chief Complaint: ETOH/Substance Use Stated Complaint: ETOH,WANTS DETOX Time Seen by Provider: 07/26/21 00:02 Source: patient Mode of arrival: EMS History of Present Illness HPI narrative: Patient homeless for last 6 months drinks alcohol mostly vodka every day and use cocaine comes here for help to stop drinking wants to go to detox denies any depression or suicidal ideation Related Data Home Medications Medication Instructions Recorded Confirmed hydroxyzine HCl 25 mg tablet 25 mg PO BID PRN 05/18/20 06/19/21 trazodone 100 mg tablet 100 mg PO BID 05/18/20 06/19/21 Previous Rx's Medication Instructions Recorded metformin 1,000 mg tablet 1,000 mg PO DAILY #30 tab 04/04/20 metformin 500 mg tablet 500 mg PO BID #60 tab 04/15/20 tramadol 50 mg tablet 50 mg PO TID PRN #30 tab 05/18/20 oxycodone 5 mg tablet 5 mg PO Q6H PRN #10 tab 09/28/20 tramadol 50 mg tablet 50 mg PO Q6H PRN #30 tab 06/19/21 blood-glucose meter #1 ea 07/02/21 metformin 500 mg tablet 500 mg PO BID #60 tab 07/02/21 Allergies Allergy/AdvReac Type Severity Reaction Status Date / Time bee pollen [BEE STINGS] Allergy Severe SWELLING Verified 06/19/21 11:02 Review of Systems Review of Systems: Yes all other systems are reviewed and are negative [facility] Past Medical History Medical History Anal fissure Anal fistula Diabetes History of alcohol abuse Social History Social History Alcohol intake: former Advance Directives: No Physical Exam ED Vital Signs: Vital Signs - 24 hr 07/26/21 00:00 07/26/21 06:00 Temperature 98.1 F 98.2 F Pulse Rate 104 H 89 Respiratory Rate 16 16 Blood Pressure 162/97 H 144/94 H Pulse Oximetry 96 96 BMI result Body Mass Index 32.4 Appearance: Alert. Oriented X3. No acute distress. Eyes: No pallor icterus ENT: Pharynx normal. Oral Mucosa moist Neck: Normal inspection. Neck supple. CVS: Normal heart rate and rhythm. Pulses normal. Respiratory: No respiratory distress. Equal air entry bilateral, no wheezing/rales/rhonchi Abdomen: Soft and nontender. Bowel sounds are present, no mass palpable, Skin: Skin warm and dry. Normal skin color. Normal skin turgor. Extremities: No lower extremity edema. No calf tenderness Neuro: Oriented X 3. No motor deficit. No sensory deficit.No cerebellar signs , cranial nerves II-XII intact MDM - Alcohol MDM Narrative Medical decision making narrative: Patient alcoholic looking for detox medically cleared will get excellence coach for detox Lab Data Attestation: I reviewed the patient's lab results. Labs: Lab Results 07/26/21 07/26/21 07/26/21 Range/Units 00:13 00:53 01:17 Urine Opiates Screen Not Detected (Not Detect) Urine Fentanyl Screen Not Detected (Not Detect) Ur Barbiturates Screen Not Detected (Not Detect) Ur Phencyclidine Scrn Not Detected (Not Detect) Ur Amphetamines Screen Not Detected (Not Detect) U Benzodiazepines Scrn Not Detected (Not Detect) Urine Cocaine Screen POSITIVE H (Not Detect) U Marijuana (THC) Screen Not Detected (Not Detect) Ethyl Alcohol 163 mg/dL COVID-19 ([facility]) Negative (Negative) COVID-19 Clin Com See Note Discharge Plan Discharge Clinical Impression: Alcoholic intoxication Patient Disposition: Still a Patient Prescriptions: No Action metformin 1,000 mg tablet 1,000 mg PO DAILY Qty: 30 0RF metformin 500 mg tablet 500 mg PO BID Qty: 60 0RF oxycodone 5 mg tablet 5 mg PO Q6H PRN (Reason: pain) Qty: 10 0RF metformin 500 mg tablet 500 mg PO BID Qty: 60 0RF (DME) blood-glucose meter Kit See Rx Instructions .Route Qty: 1 0RF Rx Instructions: As directed hydroxyzine HCl 25 mg tablet 25 mg PO BID PRN0RF trazodone 100 mg tablet 100 mg PO BID 0RF tramadol 50 mg tablet 50 mg PO TID PRN (Reason: pain) Qty: 30 0RF Rx Instructions: 1-2 tabs up to three times a day only as needed tramadol 50 mg tablet 50 mg PO Q6H PRN (Reason: pain) Qty: 30 0RF
--- NOTE | 2021-07-26 00:04 | PC.NURSE ---
completed triage and pt changed over. pt is a&o, no sob or chest pain. pt is clam and cooperative.
[2021-07-26 00:33] LABS: COVID-19 Test Negative (Negative); IDNOW Serial# 16C4AD1C
[2021-07-26 01:15] LABS: Ethanol 163 mg/dL
[2021-07-26 01:35] LABS: Amphetamine Screen Urine Not Detected (Not Detect); Barbiturates, Urine Not Detected (Not Detect); Benzodiazepines Screen Urine Not Detected (Not Detect); Cannabinoid Screen Urine Not Detected (Not Detect); Cocaine Screen Urine POSITIVE (Not Detect); Fentanyl, urine Not Detected (Not Detect); Opiate Screen Urine Not Detected (Not Detect); Phencyclidine Screen Urine Not Detected (Not Detect)
[2021-07-26] MEDS: LORazepam 1 MG TABLET 2 MG PO (04:45)
[2021-07-26 06:00] VITALS: BP 144/94; PULSE 89; RESP 16; TEMP 36.8; O2SAT 96
[2021-07-26 07:51] VITALS: BP 158/111; PULSE 98; RESP 16; O2SAT 97
--- NOTE | 2021-07-26 08:00 | PC.NURSE ---
Pt received from night guard: Pt AOX4 and offers complaint of slight nausea. Pt given gingerale as per pt request, but pt continues to intermittently sleeping. Heart sounds normal and lungs clear. Pt abd soft and non-tender.
--- NOTE | 2021-07-26 14:05 | MHC.RECOVSUP ---
? Reason for consult:Recovery Support o Current location:Discharged o Identified substance use concern: ETOH - Withdrawal - Seeking ATS (detox) - Support ? Intervention: o ATS bed search started/completed/in process o Harm reduction discussion ? Plan: o Bed search in progress to o Patient to follow up with [facility] after discharge ? Additional information:Patient seeking detox,patient sent to [facility]
== END 2021-07-26 13:04 | disposition other institution (70) ==
PROVIDERS: Emergency Provider Internal Medicine
DX: F10.220 Alcohol dependence with intoxication, uncomplicated (principal); Y90.6 Blood alcohol level of 120-199 mg/100 ml; F14.90 Cocaine use, unspecified, uncomplicated; E11.9 Type 2 diabetes mellitus without complications; Z20.822 Contact with and (suspected) exposure to COVID-19; Z79.84 Long term (current) use of oral hypoglycemic drugs
CPT/HCPCS: 36415; 80307; 82077; 87635; 99284

== ENCOUNTER 2022-11-24 02:59 | Emergency (ER) | payer MEDICAID, SELFPAY ==
[2022-11-24] VITALS (9 sets, daily range): BP systolic 121–145; BP diastolic 70–97; PULSE 89–110; RESP 16–22; TEMP 37.1; O2SAT 89–98; BMI 31.2
--- NOTE | 2022-11-24 03:10 | ED.OVERDOSE ---
HPI - Overdose General Chief Complaint: Overdose Stated Complaint: OD Time Seen by Provider: 11/24/22 03:10 Source: patient and EMS Mode of arrival: EMS Limitations: other (Intoxicated) History of Present Illness HPI Narrative: Patient comes emergency room via EMS. EMS crew giving the history, patient was found by his brother unresponsive in the bathroom. Unknown down time. According to EMS, the patient was given 6 mg of intranasal Narcan. Patient responded well. Patient admits to drinking alcohol and snorting heroin, states he used 2 bags. Patient states this was an accident, did not mean to overdose on purpose, no SI no HI Related Data Home Medications Medication Instructions Recorded Confirmed hydroxyzine HCl 25 mg tablet 25 mg PO BID PRN 05/18/20 06/19/21 trazodone 100 mg tablet 100 mg PO BID 05/18/20 06/19/21 Previous Rx's Medication Instructions Recorded metformin 1,000 mg tablet 1,000 mg PO DAILY #30 tabs 04/04/20 metformin 500 mg tablet 500 mg PO BID #60 tabs 04/15/20 tramadol 50 mg tablet 50 mg PO TID PRN pain #30 tabs 05/18/20 oxycodone 5 mg tablet 5 mg PO Q6H PRN pain #10 tabs 09/28/20 tramadol 50 mg tablet 50 mg PO Q6H PRN pain #30 tabs 06/19/21 blood-glucose meter #1 ea 07/02/21 metformin 500 mg tablet 500 mg PO BID #60 tabs 07/02/21 Allergies Allergy/AdvReac Type Severity Reaction Status Date / Time bee pollen [BEE STINGS] Allergy Severe SWELLING Verified 06/19/21 11:02 Review of Systems Review of Systems: Constitutional : No Weight loss, No Fever, No Chills, No Night Sweats, No Fatigue, No Malaise ENT/Mouth : No Hearing loss, No Ear Pain, No Nasal Congestion, No Sinus Pain, No Hoarseness, No sore throat, No Rhinorrhea, No Swallowing Difficulty Eyes: No Eye Pain, No Swelling, No Redness, No Foreign Body, No Discharge, No Vision Changes Cardiovascular : No Chest Pain, No SOB, No Dyspnea on Exertion, No Orthopnea, No Edema, No Palpitations Respiratory : No Cough, No Sputum, No Wheezing, No Smoke Exposure, No Dyspnea Gastrointestinal : No Nausea, No Vomiting, No Diarrhea, No Constipation, No abdominal Pain, No Hematochezia, No Melena Genitourinary : no irregular bleeding, No Dysuria, No Urinary Frequency, No Hematuria, No Urinary Incontinence, No Urgency, No Flank Pain, No Urinary Flow Changes, No Hesitancy Musculoskeletal : No joint pain, No Myalgias, No Joint Swelling Skin : No Skin Lesions, No rash Neuro : No Weakness, No Numbness, No Paresthesias, No Loss of Consciousness, No Dizziness, No Headache Psych : No Anxiety/Panic, No Depression, No SI/HI/AH/VH, admits to drug and alcohol abuse Heme/Lymph: No Bruising, No Bleeding,No Lymphadenopathy Endocrine : No Polyuria, No Polydipsia, No Temperature Intolerance PMFSH Past Medical History Medical History Anal fissure Anal fistula Diabetes History of alcohol abuse Polysubstance abuse Social History Social History Alcohol intake: former Physical Exam Vital Signs: Vital Signs: Last Vital Signs Temp 98.8 F 11/24/22 03:03 Pulse 101 H 11/24/22 03:03 Resp 22 H 11/24/22 03:03 BP 145/97 H 11/24/22 03:03 Pulse Ox 89 L 11/24/22 03:03 O2 Del Method Room Air 11/24/22 03:03 BMI result Body Mass Index 31.2 Const: Other: Appearance: Alert. Oriented X3. No acute distress. Intoxicated, somnolent but easily arousable, still able to answer questions coherently Eyes: Pupils equal, round and reactive to light. ENT: Pharynx normal. Neck: Normal inspection. Neck supple. No lymph nodes noted. No crepitus CVS: Normal heart rate and rhythm. Pulses normal. Normal S1 and S2 Respiratory: No respiratory distress. Breath sounds normal. No Wheezing. No rales Abdomen: Soft and nontender. No rigidity. No distention. Skin: Skin warm and dry. Normal skin color. Normal skin turgor. Extremities: No lower extremity edema. No Lacerations. No Rash Neuro: Oriented X 3. No motor deficit. No sensory deficit. Moving all extremities. No slurred speech. CN 2 through 12 grossly intact Psych: calm, cooperative, normal affect Course Course Course Narrative: -patient denies suicidal homicidal ideation, no need to Section 12 the patient -patient will be monitored -metabolized to freedom -physician observation started at 03:13 Discharge Plan Discharge Clinical Impression: Accidental overdose Patient Disposition: Still a Patient Prescriptions: No Action metformin 1,000 mg tablet 1,000 mg PO DAILY Qty: 30 0RF metformin 500 mg tablet 500 mg PO BID Qty: 60 0RF oxycodone 5 mg tablet 5 mg PO Q6H PRN (Reason: pain) Qty: 10 0RF metformin 500 mg tablet 500 mg PO BID Qty: 60 0RF (DME) blood-glucose meter Kit See Rx Instructions .Route Qty: 1 0RF Rx Instructions: As directed hydroxyzine HCl 25 mg tablet 25 mg PO BID PRN trazodone 100 mg tablet 100 mg PO BID tramadol 50 mg tablet 50 mg PO TID PRN (Reason: pain) Qty: 30 0RF Rx Instructions: 1-2 tabs up to three times a day only as needed tramadol 50 mg tablet 50 mg PO Q6H PRN (Reason: pain) Qty: 30 0RF
--- NOTE | 2022-11-24 03:12 | MHC.EDTECH ---
This tech placed patient in hospital attire, Placed on blower insulator, vitals taken. Security at bedside belongings placed in [facility].
--- NOTE | 2022-11-24 03:14 | PC.NURSE ---
Assumed care of pt. Pt transferred from EMS stretcher with no incidents. Per EMS, pt founbd on floor of bathroom by brother, 2 empty bags of ?heroin next to patient. Also per brother, pt had significant ETOH this pm. Pt rousable with minimal physical stimuli. Drowsy, answers questions appropriately when awakened. Pt sts accidental overdose, given 6mg total nasal Narcan by EMS. Currently pt receiving supplemental O2 for mild desaturation. Plan to monitor for respiratory status. VS as charted, WCTM
[2022-11-24] MEDS: Ondansetron ODT 4 MG TAB.RAPDIS TRANSLINGU (06:25)
--- NOTE | 2022-11-24 06:25 | PC.NURSE ---
Pt woke with N/V, medication ordered and administered. Plan to reevaluate in 15 minutes for ability to tolerate PO liquids, and ambulate.
--- NOTE | 2022-11-24 07:07 | PC.NURSE ---
Alert and oriented. Reports not feeling well- states stomach feels upset, adela ami provided perpatient request. VSS. Resting comfortably in bed.
--- NOTE | 2022-11-24 09:17 | PC.NURSE ---
Alert and oriented, states he is ready for discharge. vss. states he will walk home.
--- NOTE | 2022-11-24 09:20 | PC.NURSE ---
Multiple attempts to call brother will to pick patient up unsuccessful.
--- NOTE | 2022-11-24 09:35 | HO.SUDE ---
This underwriter met with pt for SUDE, pt found unresponsive by brother. Pt alert, sitting up in bed. Pt reports has overdosed in the past, last overdose 6 years ago. Pt reports is feeling scard about recent OD [employer]. Pt reports was drinking ETOH and snorted 1 bag of heroin. Pt reports uses heroin on occasion, typically a small dose or bump . Pt states, this is the first time in an extended period of time that pt has snorted 1 bag. Pt states drinks occasionally, pt reports heroin use very occasionally, socially when drinking with friends. Pt does not identify as a person with substance use disorder. Opiate overdose prevention, narcan reviewed. Pt verbalized understanding. Pt declined detox, MOUD. Pt referred to [facility] if needs more narcan and/or harm reduction supplies. . Pt encouraged to return to [facility] if interested in more recovery supports such as detox or medications. Pt verbalized understanding. Pt given drink, snacks and Addiction/Recovery contact information.
--- NOTE | 2022-11-24 09:36 | PC.NURSE ---
Reviewed discharge plan with patient who verbalized understanding, reviewed use of nasal narcan
== END 2022-11-24 09:50 | disposition home or self-care (01) ==
PROVIDERS: Emergency Provider Emergency Medicine Emergency Medical Services
DX: R40.4 Transient alteration of awareness (principal); T40.1X1A Poisoning by heroin, accidental (unintentional), initial encounter; Y92.9 Unspecified place or not applicable; F10.10 Alcohol abuse, uncomplicated; Y90.9 Presence of alcohol in blood, level not specified; E11.9 Type 2 diabetes mellitus without complications; F19.10 Other psychoactive substance abuse, uncomplicated
CPT/HCPCS: 99285

== ENCOUNTER 2022-12-11 01:46 | Emergency (ER) | payer MEDICAID, SELFPAY ==
[2022-12-11 01:57] VITALS: BP 148/98; PULSE 110; RESP 20; TEMP 36.8; O2SAT 93; BMI 34.3
--- NOTE | 2022-12-11 02:01 | PC.NURSE ---
Security at bedside for changeover.
--- NOTE | 2022-12-11 02:04 | MHC.EDTECH ---
Patient came in by ambulance, security called and are at bedside for changeover,Vitals taken and patient placed on surveillance monitor. Belongings list done,and all belongings are in [facility] room. Patient vomited 800cc,RN was made aware. Call rodríguez within reach.
[2022-12-11 03:23] VITALS: BP 121/71; PULSE 103; RESP 16; TEMP 37.1; O2SAT 99
[2022-12-11 05:30] VITALS: BP 132/82; PULSE 91; RESP 18; TEMP 36.6; O2SAT 96
--- NOTE | 2022-12-11 05:39 | PC.NURSE ---
Pt aox4 resting at the bedside in no apparent distress. Reports no pain at this time. VSS. Reports nausea. Able to tolerate liquids PO with no vomiting. Reports accidental overdose on heroin. Denies SI/HI. Not interested in detox at this time. Pending disposition and aware of plan of care.
--- NOTE | 2022-12-11 06:37 | ED_ITS ---
HPI - Overdose General Chief Complaint: Overdose Stated Complaint: OD Time Seen by Provider: 12/11/22 06:31 Source: patient and EMS Mode of arrival: EMS Limitations: no limitations History of Present Illness HPI Narrative: 37-year-old male with history of diabetes, alcohol abuse, polysubstance abuse who presents to the ER for evaluation after he overdosed unintentionally. Patient states he was drinking alcohol yesterday and decided to snore a small amount of heroin. He states he is less than a half a bag and does not recall what happened afterwards. He was found unresponsive by his family. PT administered 8 of Narcan, EMS gave another 4 mg of Narcan and patient required assisted ventilation. He woke up and has been alert and oriented since. He admitted to cocaine, heroin, marijuana, alcohol. His point of care for EMS was 400. complaint: accidental overdose Onset (ago): hour(s) Timing confirmed by: family member Context: Accidental Overdose: wanted to get high Treatments Prior to Arrival: narcan Related Data Home Medications Medication Instructions Recorded Confirmed hydroxyzine HCl 25 mg tablet 25 mg PO BID PRN 05/18/20 06/19/21 trazodone 100 mg tablet 100 mg PO BID 05/18/20 06/19/21 Previous Rx's Medication Instructions Recorded metformin 1,000 mg tablet 1,000 mg PO DAILY #30 tabs 04/04/20 metformin 500 mg tablet 500 mg PO BID #60 tabs 04/15/20 tramadol 50 mg tablet 50 mg PO TID PRN pain #30 tabs 05/18/20 oxycodone 5 mg tablet 5 mg PO Q6H PRN pain #10 tabs 09/28/20 tramadol 50 mg tablet 50 mg PO Q6H PRN pain #30 tabs 06/19/21 blood-glucose meter #1 ea 07/02/21 metformin 500 mg tablet 500 mg PO BID #60 tabs 07/02/21 Allergies Allergy/AdvReac Type Severity Reaction Status Date / Time bee pollen [BEE STINGS] Allergy Severe SWELLING Verified 12/11/22 01:58 Review of Systems Review of Systems: Yes all other systems are reviewed and are negative PMFSH Past Medical History Medical History Anal fissure Anal fistula Diabetes History of alcohol abuse Polysubstance abuse Social History Social History Alcohol intake: current Alcohol intake frequency: 3 or more drinks per day Alcohol type: hard liquor Smoked in Last 30 Days: Yes Use of substances other than those prescribed or required for medical reasons: Yes Substance Use Type: Heroin Substance Use Frequency: Chronic Longstanding Last Used Substance: Just Prior to Admission Advance Directives: No Advance Directives Information Provided: Yes Physical Exam Vital Signs: Vital Signs: Last Vital Signs Temp 97.8 F 12/11/22 05:30 Pulse 91 12/11/22 05:30 Resp 18 12/11/22 05:30 BP 132/82 12/11/22 05:30 Pulse Ox 96 12/11/22 05:30 O2 Del Method Room Air 12/11/22 05:30 BMI result Body Mass Index 34.3 Appearance: Alert. Oriented X3. No acute distress. Head: normocephalic, atraumatic. Eyes: Pupils equal, round and reactive to light. ENT: Pharynx normal. No tonsillar swelling or exudate. Neck: Normal inspection. Neck supple. CVS: Normal heart rate and rhythm. Pulses normal. Respiratory: No respiratory distress. Breath sounds normal. Abdomen: Soft and nontender. +BS x4 Skin: Skin warm and dry. Normal skin color. Normal skin turgor. No rashes. Extremities: No lower extremity edema. No joint swelling. No track parra. Neuro/psych: Oriented X 3. No motor deficit. No sensory deficit. CN II-XII intact. Normal speech and cognition. Medications Administered Discontinued Medications Generic Name Dose Route Start Last Admin Trade Name Manuel PRN Reason Stop Dose Admin Naloxone HCl 8 mg 12/11/22 06:59 12/11/22 07:11 Naloxone Hcl Nasal Take Home 4 Mg [place] NOSTRILALT 12/11/22 07:00 8 mg ONCE ONE Administration Medical Decision Making Medical Decision Making MDM Narrative: 37-year-old female with a history of diabetes, polysubstance abuse, alcohol abuse who presents to the ER for evaluation after he required 12 mg of Narcan in the field for non intentional heroin overdose. He states he is not a regular heroin user just decided to use a little bit yesterday. On arrival to the ER patient was hypertensive and tachycardic, saturating 93% on room air. After several hours of observation, his vital signs improved, saturating 96% on room air, blood pressure and heart rate normalized. He denied any physical complai nts except being slightly tired his physical exam is unremarkable. His glucose improved to 320 on its own. He has no nausea, vomiting, shortness of breath. No clinical evidence of DKA. Hyperglycemia likely due to alcohol use and dietary noncompliance. Patient denies needing to see addiction medicine. He does not want to start Suboxone or methadone. He states his heroin use is not regular and he wants to stop on his own. At this time is stable for discharge home with outpatient follow-up. Home Narcan given. Differential Diagnosis Differential Diagnoses: The differential diagnosis associated with the presentation includes Intentional overdose, accidental overdose, polysubstance abuse, pulmonary edema secondary to Narcan administration Hyperglycemia due to diabetes medication noncompliance, dietary noncompliance, doubt DKA Admission/Observation Consideration of admission/observation: Escalation of care including admission/observation considered Patient has been observed in the ER for 5 hours Lab Data MDM Lab Attestation statement: I reviewed the patient's lab results. Labs: Lab Results 12/11/22 Range/Units 06:54 POC Glucose 324 H (60-115) mg/dL Independent Historian Clinical information obtained from an independent historian. History obtained from or confirmed by: EMS External Record Review External record reviewed: Prior outpatient labs Tests considered The following testing was considered but not selected: Considered basic labs to assess for metabolic acidosis, anion gap however he had no signs or symptoms of DKA Prescription Management I considered prescription management with: Other (Narcan) Chronic Conditions Patient?s care impacted by: Diabetes and Other (Polysubstance abuse) Social Determinants Patient?s care significantly limited by Social Determinants of Health including: Alcoholism and drug addiction in family and Other Social Determinant of Health Critical Care Time Critical Care Time Critical Care Time: No Discharge Plan Discharge Clinical Impression: Drug overdose Patient Disposition: Home, Self-Care Instructions: Adult Overdose (ED) Additional Instructions: Do not use heroin, it can kill you. Recommend detox Your glucose was elevated in the 300-400 range. Make sure you monitor your glucose, limit your carb and sugar intake and take all of your medications Follow up with your doctor If you develop new or worsening symptoms call 911 or come back to the ER for further evaluation. Prescriptions: No Action metformin 1,000 mg tablet 1,000 mg PO DAILY Qty: 30 0RF metformin 500 mg tablet 500 mg PO BID Qty: 60 0RF oxycodone 5 mg tablet 5 mg PO Q6H PRN (Reason: pain) Qty: 10 0RF metformin 500 mg tablet 500 mg PO BID Qty: 60 0RF (DME) blood-glucose meter Kit See Rx Instructions .Route Qty: 1 0RF Rx Instructions: As directed hydroxyzine HCl 25 mg tablet 25 mg PO BID PRN trazodone 100 mg tablet 100 mg PO BID tramadol 50 mg tablet 50 mg PO TID PRN (Reason: pain) Qty: 30 0RF Rx Instructions: 1-2 tabs up to three times a day only as needed tramadol 50 mg tablet 50 mg PO Q6H PRN (Reason: pain) Qty: 30 0RF Interventions: ED Discharge Assessment Last Done: 12/11/22 07:29 Discharge Date/Time: 12/11/22 07:29
[2022-12-11 07:01] LABS: Glucose, Whole Blood 324 mg/dL (60-115)
[2022-12-11] MEDS: Naloxone HCl Nasal TAKE HOME 4 MG SPRAY 8 MG NOSTRILALT (07:11)
== END 2022-12-11 07:29 | disposition home or self-care (01) ==
PROVIDERS: Emergency Provider Emergency Medicine
DX: T40.1X1A Poisoning by heroin, accidental (unintentional), initial encounter (principal); F19.90 Other psychoactive substance use, unspecified, uncomplicated; Y92.9 Unspecified place or not applicable; F11.19 Opioid abuse with unspecified opioid-induced disorder; F14.19 Cocaine abuse with unspecified cocaine-induced disorder; Z79.899 Other long term (current) drug therapy; Z71.51 Drug abuse counseling and surveillance of drug abuser
CPT/HCPCS: 82947; 99284; 99285

== ENCOUNTER 2023-01-13 22:40 | Emergency (ER) | payer MEDICAID, SELFPAY ==
[2023-01-13 22:46] VITALS: BP 126/89; PULSE 100; RESP 20; TEMP 37.5; O2SAT 100; BMI 34.3
[2023-01-14] VITALS: BP 146/89; PULSE 93; RESP 17; TEMP 37.2; O2SAT 97
--- NOTE | 2023-01-14 01:19 | ED_ITS ---
HPI - Skin/Abscess/Foreign Bdy General Chief complaint: Skin/Abscess/Foreign Body Stated complaint: Abscess Time Seen by Provider: 01/14/23 01:05 Source: patient and family Mode of arrival: ambulatory Limitations: no limitations History of Present Illness HPI narrative: 37-year-old male came in for evaluation of skin infection. Patient has a multiple skin rashes and spots, patient just got out of care home had to sleep over at a friend's house think he was been by insects causing him to itch, no fever, no chills. Patient normally is prone to skin infection and skin abscesses. Related Data Home Medications Medication Instructions Recorded Confirmed hydroxyzine HCl 25 mg tablet 25 mg PO BID PRN 05/18/20 06/19/21 trazodone 100 mg tablet 100 mg PO BID 05/18/20 06/19/21 Previous Rx's Medication Instructions Recorded metformin 1,000 mg tablet 1,000 mg PO DAILY #30 tabs 04/04/20 metformin 500 mg tablet 500 mg PO BID #60 tabs 04/15/20 tramadol 50 mg tablet 50 mg PO TID PRN pain #30 tabs 05/18/20 oxycodone 5 mg tablet 5 mg PO Q6H PRN pain #10 tabs 09/28/20 tramadol 50 mg tablet 50 mg PO Q6H PRN pain #30 tabs 06/19/21 blood-glucose meter #1 ea 07/02/21 metformin 500 mg tablet 500 mg PO BID #60 tabs 07/02/21 doxycycline hyclate 100 mg tablet 100 mg PO BID #14 tabs 01/14/23 mupirocin 2 % topical ointment 1 appl topical TID #22 grams 01/14/23 Allergies Allergy/AdvReac Type Severity Reaction Status Date / Time bee pollen [BEE STINGS] Allergy Severe SWELLING Verified 12/11/22 01:58 Review of Systems Review of Systems: All other systems are reviewed and are negative Constitutional: Reports as per HPI and Reports no additional constitutional complaints Eyes: Reports as per HPI and Reports no additional eye complaints Reports system reviewed and no additional complaints, except as documented Cardiovascular: Reports as per HPI and Reports no additional cardiovascular complaints Respiratory: Reports as per HPI and Reports no additional respiratory complaints Gastrointestinal: Reports as per HPI and Reports no additional gastrointestinal complaints Genitourinary: Reports no additional female genitourinary complaints Musculoskeletal: Reports no additional musculoskeletal complaints Skin/Breast: Reports system reviewed and no additional complaints, except as docu Psychiatric: Reports no additional psychiatric complaints Endocrine: Reports no additional endocrine complaints Hematologic/Lymphatic: Reports no additional hematologic/lymphatic complaints Allergic/Immunologic: Reports no additional allergic/immunologic complaints Reports system reviewed and no additional complaints, except as documented and Reports Abnormal speech present [facility] Past Medical History Medical History Anal fissure Anal fistula Diabetes History of alcohol abuse Polysubstance abuse Social History Social History Alcohol intake: current Alcohol intake frequency: 0-2 drinks per day Alcohol type: beer Smoked in Last 30 Days: No Use of substances other than those prescribed or required for medical reasons: Yes Substance Use Type: Crack/Cocaine Substance Use Frequency: Chronic Longstanding Advance Directives: No Advance Directives Information Provided: Yes Physical Exam Vital Signs: Vital Signs: Last Vital Signs Temp 99 F 01/14/23 00:00 Pulse 93 01/14/23 00:00 Resp 17 01/14/23 00:00 BP 146/89 H 01/14/23 00:00 Pulse Ox 97 01/14/23 00:00 O2 Del Method Room Air 01/14/23 00:00 BMI result Body Mass Index 34.3 Vital signs have been reviewed as appeared to be correct. Blood pressure normal. Heart rate normal. Respiration rate normal. Temperature normal. Oxygen saturation normal. Appearance: Alert. Oriented X3. No acute distress. Head: Normal external exam. Normocephalic. Atraumatic. No [place] signs noted. No raccoon eyes noted Eyes: PERRLA. EOMI. Conjunctiva and sclera normal. Eyelids normal. ENT: TM's Normal. Pharynx normal. Uvula midline. Moist mucous membranes. No trismus noted. No drooling noted. No muffled voice noted. Neck: Normal inspection. Neck supple. FROM. No adenopathy. Thyroid Normal. No meningeal signs. No neck mass noted. CVS: Normal heart rate and rhythm. Heart sound normal. No murmurs noted. Pulses normal throughout. Respiratory: No respiratory distress. Painless inspiration. Breath sounds normal. No wheezes/rales/rhonchi noted. Chest nontender. No accessory muscle usage noted or decreased air movement noted. Abdomen: Soft and nontender. Bowel sounds normal in all 4 quadrants. No distention noted. No organomegaly noted. No visible injury noted. Back: No CVA tenderness. Full range of motion noted. Skin: Skin warm and dry. Normal skin color. Normal skin turgor. Diffuse maculopapular rash on a upper extremities and on the torso with a mild redness around each rash. No fluctuation, no discharge. Extremities: No lower extremity edema. Extremities exhibit normal range of motion. Extremities nontender. Neuro: Oriented X 3. Cranial nerve exam: II-XII are grossly intact No motor deficit. No sensory deficit. Reflexes normal. Course Course Course Narrative: Impetigo (infected) start the patient on doxycycline and mupirocin ointment, recommended to follow-up with PCP and get a clay preparation supervisor referral if not responding to the treatment. Medical Decision Making Differential Diagnosis Differential Diagnoses: The differential diagnosis associated with the presentation includes (Impetigo, cellulitis, hyperglycemia, sepsis.) Admission/Observation Consideration of admission/observation: Escalation of care including admission/observation considered Discharge Plan Discharge Clinical Impression: Impetigo Patient Disposition: Home, Self-Care Instructions: Impetigo (ED) Additional Instructions: Follow-up with your PCP and request referral to a clay preparation supervisor. Prescriptions: New doxycycline hyclate 100 mg tablet 100 mg PO BID Qty: 14 0RF mupirocin 2 % ointment 1 appl topical TID Qty: 22 0RF No Action metformin 1,000 mg tablet 1,000 mg PO DAILY Qty: 30 0RF metformin 500 mg tablet 500 mg PO BID Qty: 60 0RF oxycodone 5 mg tablet 5 mg PO Q6H PRN (Reason: pain) Qty: 10 0RF metformin 500 mg tablet 500 mg PO BID Qty: 60 0RF (DME) blood-glucose meter Kit See Rx Instructions .Route Qty: 1 0RF Rx Instructions: As directed hydroxyzine HCl 25 mg tablet 25 mg PO BID PRN trazodone 100 mg tablet 100 mg PO BID tramadol 50 mg tablet 50 mg PO TID PRN (Reason: pain) Qty: 30 0RF Rx Instructions: 1-2 tabs up to three times a day only as needed tramadol 50 mg tablet 50 mg PO Q6H PRN (Reason: pain) Qty: 30 0RF
[2023-01-14] MEDS: Doxycycline Monohydrate 100 MG CAPSULE PO (01:26)
== END 2023-01-14 01:29 | disposition home or self-care (01) ==
PROVIDERS: Emergency Provider Emergency Medicine
DX: L01.00 Impetigo, unspecified (principal); Z79.899 Other long term (current) drug therapy
CPT/HCPCS: 99284